=== PATIENT | male | born 1950 | race African-American/Black ===

== ENCOUNTER 2023-06-03 18:57 | Inpatient (IN) | payer OTHER ==
[2023-06-03] MEDS ORDERED: Ondansetron PF 4 MG/2 ML Vial IVP PRN (20:43)
[2023-06-03] MEDS ORDERED: Ondansetron ODT 4 MG TAB PO PRN (20:43)
[2023-06-03] MEDS ORDERED: Ventolin HFA Inhaler 60 PUFF INHALER INH PRN (20:52)
[2023-06-03] MEDS ORDERED: Heparin 25,000 units/D5W 500 ML IVPB SCH (21:00)
[2023-06-03] MEDS ORDERED: Heparin 10,000 UNITS/ 10 ML VIAL SLOW IVP SCH (21:00)
[2023-06-03 21:44] LABS: Hematocrit 31.6 % (38.8-50.0); Hemoglobin 10.4 g/dL (13.5-17.5); Platelet Count 198 10x3/uL (150-450)
[2023-06-03] MEDS: cloNIDine 0.1 MG TAB PO SCH (21:45)
[2023-06-03] MEDS: Atorvastatin Calcium 40 MG TAB PO SCH (21:45)
[2023-06-03 21:57] VITALS: BMI 26.9
[2023-06-03 22:13] LABS: Troponin I 0.064 ng/mL (< 0.028)
[2023-06-04 01:15] LABS: Troponin I 0.057 ng/mL (< 0.028)
[2023-06-04] MEDS: Acetaminophen 325 MG TAB PO PRN ×2 (05:15→23:54)
[2023-06-04 05:32] LABS: Hematocrit 29.6 % (38.8-50.0); Hemoglobin 9.7 g/dL (13.5-17.5); MDiff Complete? YES; Mean Corpuscular HGB CONC 32.8 g/dL (32.0-36.0); Mean Corpuscular Hemoglobin 27.3 pg (27.0-33.0); Mean Corpuscular Volume 83.4 fl (81.2-95.1); Mean Platelet Volume 8.9 fl (7.4-10.4); Platelet Count 191 10x3/uL (150-450); RBC Distribution Width 15.8 % (11.5-14.5); Red Blood Cell (RBC) Count 3.55 10x6/uL (4.32-5.72); White Blood Cell (WBC) Count 6.3 10x3/uL (3.5-10.5)
[2023-06-04 05:38] LABS: ALT (SGPT) 15 U/L (8-55); AST (SGOT) 30 U/L (5-34); Albumin 3.1 g/dL (3.4-4.8); Alkaline Phosphatase 42 U/L (40-110); Anion Gap 19 mmol/L (10-20); BUN (Urea Nitrogen) 112 mg/dL (8.4-25.7); Bilirubin, Total 0.6 mg/dL (0.2-1.2); Calc. Creatinine Clearance 5 mL/min (70-130); Calcium 9.1 mg/dL (7.8-10.44); Carbon Dioxide 18 mmol/L (23-31); Chloride 106 mmol/L (98-107); Estimated GFR 4; Globulin 2.7 g/dL (2.4-3.5); Glucose 79 mg/dL (83-110); Potassium 4.7 mmol/L (3.5-5.1); Protein, Total 5.8 g/dL (5.8-8.1); Sodium 138 mmol/L (136-145)
[2023-06-04 06:22] LABS: Band 6 % (5-11); Eosinophils 3 % (0-10); Lymphocytes 26 % (21-51); Monocytes 15 % (0-10); Neutrophil 49 % (42-75); Reactive Lymphocytes 1 % (0-10)
[2023-06-04 06:26] LABS: Crenated RBC SLIGHT = 1-5 cells (100X) (None Seen); Hypochromia SLIGHT = 6-15 cells (100X) (0-5/hpf); Microcytosis SLIGHT = 6-15 cells (100X) (0-5/hpf); Ovalocytes SLIGHT = 2-5 cells (100X) (0-1/hpf); Schistocytes SLIGHT = 2-5 cells (100X) (0-1/hpf)
[2023-06-04] MEDS: Amlodipine 10 MG TAB PO SCH (09:07)
[2023-06-04] MEDS: Aspirin Chewable 81 MG TAB PO SCH (09:07)
[2023-06-04] MEDS: cloNIDine 0.1 MG TAB PO SCH (09:07)
[2023-06-04] MEDS: Losartan 50 MG TAB PO SCH (09:07)
[2023-06-04 11:29] LABS: HBSAg Index 0.73 S/CO (0-0.99); Hep B Surf Ag Non-Reactive S/CO (NonReactive)
[2023-06-04 14:30] LABS: Hep B Core Total Ab Non-Reactive (NonReactive); Hep B Core Total Index 0.05 S/CO (0-0.79); Hep C IgG Ab Non-Reactive S/CO (NonReactive); Hep C Index 0.04 S/CO (0-0.79)
[2023-06-04 14:51] LABS: HBSAB Concentration 25.16 mIU/mL; Hep B Surf AB Reactive (NonReactive)
[2023-06-04] MEDS ORDERED: Metoprolol Tartrate 50 MG TAB PO SCH ×2 (21:00→22:15)
[2023-06-04] MEDS: Atorvastatin Calcium 40 MG TAB PO SCH (21:45)
[2023-06-05] MEDS ORDERED: Melatonin 3 MG TAB PO SCH ×2 (04:45→21:00)
[2023-06-05] MEDS: Acetaminophen 325 MG TAB PO PRN (04:50)
[2023-06-05] MEDS ORDERED: Metoprolol Tartrate 50 MG TAB PO SCH (09:00)
[2023-06-05] MEDS: Amlodipine 10 MG TAB PO SCH (09:41)
[2023-06-05] MEDS: Losartan 50 MG TAB PO SCH (09:42)
[2023-06-05] MEDS: Aspirin Chewable 81 MG TAB PO SCH (09:42)
[2023-06-05 11:44] LABS: Anion Gap 16 mmol/L (10-20); BUN (Urea Nitrogen) 71 mg/dL (8.4-25.7); Calc. Creatinine Clearance 7 mL/min (70-130); Calcium 8.9 mg/dL (7.8-10.44); Carbon Dioxide 25 mmol/L (23-31); Chloride 100 mmol/L (98-107); Estimated GFR 5; Glucose 126 mg/dL (83-110); Magnesium 2.8 mg/dL (1.6-2.6); Potassium 4.2 mmol/L (3.5-5.1); Sodium 137 mmol/L (136-145)
[2023-06-05 12:31] VITALS: BP 130/65; TEMP 98
== END 2023-06-05 15:11 | disposition home or self-care (01) | DRG 313 ==
LOC: CSHTELE 20:12 → OBSVTOIN 06-05 09:00
PROVIDERS: ADMIT Family Medicine; ATTEND Internal Medicine
PROC: 5A1D70Z Performance of Urinary Filtration, Intermittent, Less than 6 Hours Per Day (ICD-10-PCS; principal; 2023-06-04)
DX: R07.2 Precordial pain (principal); N18.6 End stage renal disease; I12.0 Hypertensive chronic kidney disease with stage 5 chronic kidney disease or end stage renal disease; E87.20 Acidosis, unspecified; F17.210 Nicotine dependence, cigarettes, uncomplicated; E78.5 Hyperlipidemia, unspecified; I49.3 Ventricular premature depolarization; D63.1 Anemia in chronic kidney disease; R55 Syncope and collapse; Z79.899 Other long term (current) drug therapy; Z99.2 Dependence on renal dialysis
CPT/HCPCS: 36415; 36416; 80048; 80053; 83735; 84484; 85025; 85730; 86704; 90935; 93005; 93010; 93306; 94760; 96374; G0257; G0378; J1644